=== PATIENT | male | born 1960 | race Caucasian/White ===

== ENCOUNTER 2021-10-13 07:57 | Day surgery (SDC) | payer BC ==
[~2021-10-13 07:57] MED LIST: Lactated Ringers 1,000 ML IV SCH; Sodium Chloride 0.9% 10 ML Syringe FLUSH PRN
[2021-10-13] MEDS ORDERED: fentaNYL 100 MCG/2 ML SDV ONE (09:17)
[2021-10-13] MEDS ORDERED: Propofol 200 MG/20 ML SDV ONE ×2 (09:17→09:33)
== END 2021-10-13 10:45 | disposition home or self-care (01) ==
LOC: VM.SDS 07:57
PROVIDERS: ATTEND Surgery
DX: Z12.11 Encounter for screening for malignant neoplasm of colon (principal); E11.69 Type 2 diabetes mellitus with other specified complication; E78.00 Pure hypercholesterolemia, unspecified; Z86.010 Personal history of colon polyps; Z79.899 Other long term (current) drug therapy; Z79.84 Long term (current) use of oral hypoglycemic drugs
CPT/HCPCS: 00811; 82947; J2704; J3010; J7120

== ENCOUNTER 2023-05-12 11:08 | Emergency (ER) | payer BC ==
[2023-05-12] MEDS ORDERED: Lidocaine 1% 10 ML MDV INJECT ONE (12:42)
[2023-05-12] MEDS ORDERED: Diphtheria,Pertussis(Acell),Tetanus Vaccine 0.5 ML Syringe IM ONE (12:50)
== END 2023-05-12 13:40 | disposition home or self-care (01) ==
LOC: VM.ED 11:08
DX: S62.393B Other fracture of third metacarpal bone, left hand, initial encounter for open fracture (principal); S62.325A Displaced fracture of shaft of fourth metacarpal bone, left hand, initial encounter for closed fracture; S61.215A Laceration without foreign body of left ring finger without damage to nail, initial encounter; S61.213A Laceration without foreign body of left middle finger without damage to nail, initial encounter; E78.00 Pure hypercholesterolemia, unspecified; E11.9 Type 2 diabetes mellitus without complications; Z23 Encounter for immunization; Z79.82 Long term (current) use of aspirin; Z79.84 Long term (current) use of oral hypoglycemic drugs; Z79.899 Other long term (current) drug therapy; W23.0XXA Caught, crushed, jammed, or pinched between moving objects, initial encounter
CPT/HCPCS: 12002; 73120-LT; 73140-F2; 90471; 90715; 99283-25; J3490